=== PATIENT | male | born 1980 | race Caucasian/White ===

== ENCOUNTER 2017-07-20 16:22 | Emergency (ER) | payer MEDICAID, OTHER ==
[~2017-07-20] VITALS: Ht 175.3 cm; Wt 108.9 kg
[2017-07-20] MEDS ORDERED: HYDROcodone/Acetamin 7.5/325 tab ORAL ONE (17:00)
[2017-07-20] MEDS ORDERED: Bacitracin Oint UD TOPIC ONE (17:30)
--- NOTE | 2017-07-20 17:32 | Emergency Room Report ---
History of Present Illness General Chief Complaint: Upper Extremity Injury Source: Patient Present Illness HPI 37-year-old male presents to the emergency department complaining of 3 out of 10 in severity localized pain to the left ring finger 30 minutes. Patient states that he had mechanical trip and fall and he attempted to grab something to prevent falling and he bent his finger backwards. Patient states initially he had 10 out of 10 pain and it has become 3 out of 10 in severity with application of ice pack. Patient states he is able to move his finger however he is worried about fracture. Patient is right-hand dominant. Reports abrasion and redness to the top of the left ring finger. Denies bleeding. Patient denies hitting his head or losing consciousness. Denies numbness tingling or loss of sensation or gross motor movements of the extremities, incontinence of bowel or bladder. Denies CP, Palpitations, LOC, AMS, dizziness, Changes in Vision, Sensation, paresthesias, or a sudden severe headache. Allergies: Coded Allergies: No Known Allergies (Unverified , 07/20/17) Patient History Past Medical History: see triage record Past Surgical History: none Pertinent Family History: none Immunizations: UTD Reviewed Nursing Documentation: PMH: Agreed, PSxH: Agreed Nursing Documentation-PMH Past Medical History: No Stated History Review of Systems All Other Systems: negative except mentioned in HPI Physical Exam Vital Signs Date Time Temp Pulse Resp B/P (MAP) Pulse Ox O2 Delivery O2 Flow Rate FiO2 07/20/17 16:40 98.5 76 16 131/79 96 Room Air 98.4 Sp02 EP Interpretation: reviewed, normal General Appearance: no apparent distress, alert, GCS 15, non-toxic Head: normocephalic, atraumatic ENT: hearing grossly normal, normal voice Neck: full range of motion Respiratory: lungs clear, normal breath sounds, speaking full sentences Cardiovascular #1: regular rate, rhythm Musculoskeletal: back normal, gait/station normal, normal range of motion, tender - mild ttp dip of the left ring finger, no increased laxity or obvious deformity Neurologic: alert, oriented x3, responsive, motor strength/tone normal, sensory intact, speech normal, grossly normal Psychiatric: judgement/insight normal Skin: normal color, no rash, warm/dry, well hydrated, abrasions - small abrasion to the dorsal left ring finger, no bleeding at this time. superficial. Medical Decision Making PA Attestation Dr. Woodard is my supervising Physician whom patient management has been discussed with. Diagnostic Impression: Primary Impression: Sprain of finger, left Qualified Codes: S63.635A - Sprain of interphalangeal joint of left ring finger, initial encounter Additional Impression: Abrasion ER Course 37-year-old male presents to the emergency department complaining of 3 out of 10 in severity localized pain to the left ring finger 30 minutes. Patient states that he had mechanical trip and fall and he attempted to grab something to prevent falling and he bent his finger backwards. Patient states initially he had 10 out of 10 pain and it has become 3 out of 10 in severity with application of ice pack. Patient states he is able to move his finger however he is worried about fracture. Patient is right-hand dominant. Reports abrasion and redness to the top of the left ring finger. Denies bleeding. Patient denies hitting his head or losing consciousness. Denies numbness tingling or loss of sensation or gross motor movements of the extremities, incontinence of bowel or bladder. Denies CP, Palpitations, LOC, AMS, dizziness, Changes in Vision, Sensation, paresthesias, or a sudden severe headache. Ddx considered but are not limited to Fracture, dislocation, contusion, Sprain/ Strain/Spasm. Vital signs: are WNL, pt. is afebrile H&PE are most consistent with musculoskeletal injury will perform imaging to r/ o fractures/dislocations. ORDERS: - X-ray : negative ED INTERVENTIONS: - Tylenol PO -Bacitracin DISCHARGE: At this time pt. is stable for d/c to home. Will provide printed patient care instructions, and any necessary prescriptions. Care plan and follow up instructions have been discussed with the patient prior to discharge. Other X-Ray Diagnostic Results Other X-Ray Diagnostic Results : X-Ray ordered: Left hand # of Views/Limited Vs Complete: 3 View Indication: Pain EP Interpretation: Yes PA Xray: Interpretation reviewed, by supervising MD, and agrees with findings. Interpretation: no dislocation, no soft tissue swelling, no fractures Impression: No acute disease Electronically Signed by: Yandy Sorto PA-C Last Vital Signs Date Time Temp Pulse Resp B/P (MAP) Pulse Ox O2 Delivery O2 Flow Rate FiO2 07/20/17 16:40 98.5 76 16 131/79 96 Room Air 98.4 Disposition: HOME, SELF-CARE Condition: Stable Scripts Ibuprofen* (MOTRIN*) 600 Mg Tablet 600 MG ORAL THREE TIMES A DAY, #20 TAB 0 Refills Prov: Yandy Sorto 07/20/17 Bacitracin/Polymyxin B Sulfate (BACITRACIN-POLYMYXIN OINTMENT) 28.35 Gm Oint...g. 1 APPLIC TP BID, #28.3 GM Prov: Yandy Sorto 07/20/17 Departure Forms: Return to Work Return to Work Date: Jul 21, 2017 Work Restrictions: No Heavy Lifting Other Restrictions: limited use of left hand x up to 1 week. Return to Full Activity: Jul 27, 2017 Patient Instructions: Finger Sprain, [id number] Additional Instructions: Take medications as directed. Follow up with a Primary Care Provider in 3-5 days, even if your symptoms have resolved. --Please review list of primary care clinics, if you do not already have a primary care provider Return sooner to ED if new symptoms occur, or current symptoms become worse. - Please note that this Emergency Department Report was dictated using [employer]bookslymphed[employer] therapist technology software, occasionally this can lead to erroneous entry secondary to interpretation by the dictation equipment. Yandy Sorto Jul 20, 2017 17:32
[2017-07-20] MEDS ORDERED: BACITRACIN-P28.35 GM TP (18:03)
[2017-07-20] MEDS ORDERED: IBUPROFEN600 MG ORAL (18:03)
[2017-07-20 18:25] VITALS: BP 109/72
--- NOTE | 2017-07-21 10:19 | Diagnostic Imaging Report ---
Indication: Pain Technique: XRAY Hand Complete L Comparison: None Findings: No evidence of acute fracture or dislocation. Alignment and joint spaces preserved. No radiopaque foreign body seen. Impression: No evidence of acute bony or articular abnormality.
== END 2017-07-20 18:25 | disposition home or self-care (01) ==
LOC: EMR 16:45
DX: S63.635A Sprain of interphalangeal joint of left ring finger, initial encounter (principal); S60.415A Abrasion of left ring finger, initial encounter; W01.0XXA Fall on same level from slipping, tripping and stumbling without subsequent striking against object, initial encounter; Y93.9 Activity, unspecified; Y92.9 Unspecified place or not applicable
CPT/HCPCS: 99284